=== PATIENT | male | born 1960 | race African-American/Black ===

== ENCOUNTER 2016-09-21 08:10 | Inpatient (IN) | payer MEDICARE, OTHER ==
[~2016-09-21] VITALS: Ht 185.4 cm; Wt 100.3 kg
[2016-09-21] MEDS ORDERED: LORazepam 2 MG/ML, 1ML ONE ×2 (08:19→10:09)
[2016-09-21] MEDS ORDERED: SODIUM CHLORIDE FLUSH 10ML SYR IVF ONE (08:30)
[2016-09-21] MEDS ORDERED: LORazepam 2 MG/ML, 1ML IVPush ONE ×2 (08:30→10:30)
[2016-09-21] MEDS ORDERED: SODIUM CHLORIDE 0.9% 1,000ML IVBOLUS ONE (08:30)
[2016-09-21 08:48] LABS: ASPARTATE AMINO TRANSFERASE 15 U/L (15-37); BLOOD UREA NITROGEN 9 mg/dL (7-18)
[2016-09-21 08:49] LABS: ACETAMINOPHEN < 2 mcg/mL (10-30)
[2016-09-21] MEDS ORDERED: AMLO10TA2 PO (09:07)
[2016-09-21] MEDS ORDERED: OXCA150T PO (09:07)
[2016-09-21] MEDS ORDERED: LISI-170 PO (09:07)
[2016-09-21] MEDS ORDERED: HYDR-3341 PO (09:07)
[2016-09-21 10:36] LABS: DAU SCREEN DISCLAIMER
[2016-09-21] MEDS ORDERED: LISI40TA PO (10:44)
[2016-09-21] MEDS ORDERED: LEVE100020 PO (10:44)
[2016-09-21] MEDS ORDERED: HYDR-3241 PO (10:44)
[2016-09-21] MEDS ORDERED: OXYC5CAP4 PO (10:44)
[2016-09-21] MEDS ORDERED: OXCA600T PO (10:44)
[2016-09-21] MEDS ORDERED: CLON0.3T47 PO (10:44)
[2016-09-21] MEDS ORDERED: MYCO500T3 PO (10:44)
[2016-09-21] MEDS ORDERED: LEVETIRACETAM 1,500 MG in SODIUM CHLORIDE 0.9% 100 ML IV ONE (11:00)
[2016-09-21] MEDS ORDERED: VALPROATE SODIUM 500 MG in DEXTROSE 5% 100 ML IV ONE (11:30)
[2016-09-21] MEDS: SODIUM CHLORIDE 0.9% 1,000 ML IV SCH ×2 (12:16→20:16)
[2016-09-21] MEDS ORDERED: POTASSIUM CHLORIDE 20 MEQ, MAGNESIUM SULFATE 2 GM, THIAMINE 100 MG, MVI ADULT 10 ML, FO... IV SCH (12:16)
[2016-09-21] MEDS ORDERED: BISACODYL 10 MG SUPP PR PRN (12:30)
[2016-09-21] MEDS ORDERED: POLYETHYLENE GLYCOL 17 GM PACKET PO PRN (12:30)
[2016-09-21] MEDS ORDERED: DOCUSATE 100 MG CAPSULE PO PRN (12:30)
[2016-09-21 12:53] VITALS: BP 175/97
[2016-09-21] MEDS ORDERED: LABETALOL 5MG/ML, 20ML IV PRN (13:00)
[2016-09-21] MEDS: LISINOPRIL 20 MG TABLET PO SCH (15:04)
[2016-09-21] MEDS: AMLODIPINE 5 MG TABLET PO SCH (17:12)
[2016-09-21] MEDS: FAMOTIDINE 20 MG/2 ML IV SCH (21:31)
[2016-09-21] MEDS: OXCARBAZEPINE 150 MG TABLET PO SCH (22:31)
[2016-09-21] MEDS: LEVETIRACETAM 500 MG TABLET PO SCH (22:31)
[2016-09-22 04:00] VITALS: BP 140/87
[2016-09-22 04:42] LABS: ASPARTATE AMINO TRANSFERASE 11 U/L (15-37); BLOOD UREA NITROGEN 9 mg/dL (7-18)
[2016-09-22] MEDS: FAMOTIDINE 20 MG/2 ML IV SCH (08:59)
[2016-09-22] MEDS: LEVETIRACETAM 500 MG TABLET PO SCH ×2 (08:59→23:01)
[2016-09-22] MEDS: AMLODIPINE 5 MG TABLET PO SCH (08:59)
[2016-09-22] MEDS: OXCARBAZEPINE 150 MG TABLET PO SCH ×2 (09:00→23:01)
[2016-09-22] MEDS: LISINOPRIL 20 MG TABLET PO SCH (09:01)
[2016-09-22] MEDS ORDERED: POTASSIUM CHLORIDE 20 MEQ TAB.ER.PRT PO ONE (09:30)
[2016-09-22 12:32] VITALS: BP_SYST 141; BP_SYST 97; BP_DIAS 64; BP_DIAS 81
[2016-09-22 19:36] VITALS: BP 145/90
[2016-09-23 01:54] VITALS: BP 157/95
[2016-09-23 06:53] VITALS: BP 169/101
[2016-09-23] MEDS: OXCARBAZEPINE 150 MG TABLET PO SCH (08:36)
[2016-09-23] MEDS: AMLODIPINE 5 MG TABLET PO SCH (08:36)
[2016-09-23] MEDS: LISINOPRIL 20 MG TABLET PO SCH (08:36)
[2016-09-23] MEDS: LEVETIRACETAM 500 MG TABLET PO SCH (08:36)
== END 2016-09-23 15:10 | disposition home or self-care (01) | DRG 101 ==
LOC: ED 11:39 → EDIP 12:17 → CCU 12:22 → 4EST 09-22 12:28 → DCLOUNGE 09-23 14:46
PROVIDERS: ADMIT Hospitalist; ATTEND Hospitalist
DX: G40.901 Epilepsy, unspecified, not intractable, with status epilepticus (principal); I10 Essential (primary) hypertension; M32.9 Systemic lupus erythematosus, unspecified; E87.6 Hypokalemia; M32.19 Other organ or system involvement in systemic lupus erythematosus; Z79.899 Other long term (current) drug therapy; Z91.19 Patient's noncompliance with other medical treatment and regimen; Z88.8 Allergy status to other drugs, medicaments and biological substances
CPT/HCPCS: 36415; 70450; 71010; 80053; 80307; 80329; 81003; 82542; 83735; 85025; 87081; 93005; 96361; 96365; 96367; 96375; 96376; J1953; J3411; J3475; J3480; J7042; G0480; J2060; J7030; S0028

== ENCOUNTER 2018-02-15 02:35 | Inpatient (IN) | payer MEDICARE ==
[~2018-02-15] VITALS: Ht 180.3 cm; Wt 92.4 kg
[~2018-02-15 02:35] MED LIST: AMLO10TA6 PO; CLON0.3T47 PO; HYDR-3241 PO; HYDR-3341 PO; LEVE100020 PO; LISI-170 PO; LISI40TA PO; MYCO500T3 PO; OXCA150T18 PO; OXCA600T10 PO; OXYC5CAP2 PO
[2018-02-15] MEDS ORDERED: SODIUM CHLORIDE 0.9% 1,000 ML IV ONE ×2 (02:48→04:02)
[2018-02-15] MEDS ORDERED: SODIUM CHLORIDE FLUSH 10ML SYR IVF ONE (03:00)
[2018-02-15] MEDS ORDERED: SODIUM CHLORIDE 0.9% 1,000ML IVBOLUS ONE ×2 (03:00→04:00)
[2018-02-15] MEDS ORDERED: LORazepam 2 MG/ML, 1ML ONE (03:27)
[2018-02-15] MEDS ORDERED: LEVETIRACETAM 1,000 MG in SODIUM CHLORIDE 0.9% 100 ML IV ONE (03:30)
[2018-02-15] MEDS ORDERED: LORazepam 2 MG/ML, 1ML IVPush ONE ×2 (03:30→07:00)
[2018-02-15 03:34] LABS: BASOPHILS # (AUTO) 0.01 x10^3/uL (0-0.1); BASOPHILS % (AUTO) 0 % (0-1); EOSINOPHILS # (AUTO) 0.04 x10^3/uL (0-0.4); EOSINOPHILS % (AUTO) 1 % (1-7); LYMPHOCYTES # (AUTO) 1.34 x10^3/uL (1-3.4); LYMPHOCYTES % (AUTO) 21 % (22-44); MD NO; MEAN CORPUSCULAR HEMOGLOBIN 27.5 pg (27.5-34.5); MEAN CORPUSCULAR VOLUME 85.9 fL (81-97); MEAN PLATELET VOLUME 10.9 fL (7.4-10.4); MONOCYTES # (AUTO) 0.35 x10^3/uL (0.2-0.8); MONOCYTES % (AUTO) 5 % (2-9); NEUTROPHILS # (AUTO) 4.71 x10^3/uL (1.8-6.8); NEUTROPHILS % (AUTO) 73 % (42-75); PLATELET COUNT 155 x10^3/uL (130-400); RED BLOOD COUNT 5.23 x10^6/uL (4.38-5.82); RED CELL DISTRIBUTION WIDTH 14.5 % (9.4-14.8)
[2018-02-15 03:47] LABS: ALANINE AMINOTRANSFERASE 22 U/L (12-78); ALBUMIN 3.4 g/dL (3.4-5.0); ANION GAP 19 mmol/L (5-15); CALCIUM 8.4 mg/dL (8.5-10.1); CHLORIDE 106 mmol/L (98-107); CREATININE 1.31 mg/dL (0.7-1.3); SALICYLATE LEVEL 2.9 mg/dL (2.8-20.0)
[2018-02-15 03:49] LABS: ALKALINE PHOSPHATASE 104 U/L (45-117); BILIRUBIN,TOTAL 0.2 mg/dL (0.2-1.0)
[2018-02-15 03:53] LABS: ACETAMINOPHEN < 2 mcg/mL (10-30)
[2018-02-15] MEDS ORDERED: AMPICILLIN/SULBACTAM 3 GM in SODIUM CHLORIDE 0.9% 100 ML IVPB ONE (04:00)
[2018-02-15] MEDS ORDERED: HYDR-3240 PO (04:20)
[2018-02-15] MEDS ORDERED: SODIUM CHLORIDE FLUSH 10ML SYR IVF PRN (04:30)
[2018-02-15] MEDS ORDERED: hydrALAzine 20 MG/ML, 1ML ONE (04:47)
[2018-02-15] MEDS ORDERED: OXYcodone IR 5MG TABLET PO PRN (05:00)
[2018-02-15] MEDS ORDERED: BISACODYL 10 MG SUPP PR PRN ×2 (05:00→07:00)
[2018-02-15] MEDS ORDERED: hydrALAzine 20 MG/ML, 1ML IVPush PRN (05:00)
[2018-02-15] MEDS ORDERED: D5%-0.9% NACL 1,000 ML IV SCH (05:00)
[2018-02-15] MEDS ORDERED: ACETAMINOPHEN 325 MG TABLET PO PRN (05:00)
[2018-02-15] MEDS ORDERED: POLYETHYLENE GLYCOL 17 GM PACKET PO PRN (05:00)
[2018-02-15] MEDS ORDERED: morphine SULFATE 10 MG/ML, 1ML IVPush PRN (05:00)
[2018-02-15] MEDS ORDERED: DOCUSATE 100 MG CAPSULE PO PRN (05:00)
[2018-02-15] MEDS ORDERED: PROMETHAZINE 25 MG/ML, 1ML IM PRN (05:00)
[2018-02-15] MEDS ORDERED: ONDANSETRON 2MG/ML, 2ML IVPush PRN (05:00)
[2018-02-15] MEDS ORDERED: ONDANSETRON ODT 4 MG PO PRN (05:00)
[2018-02-15 05:27] LABS: HEMOGLOBIN A1C 5.3 % (4.2-6.3)
[2018-02-15 05:30] LABS: FREE T4 (FREE THYROXINE) 0.85 ng/dL (0.76-1.46); THYROID STIMULATING HORMONE 2.83 mIU/L (0.358-3.740)
[2018-02-15] MEDS ORDERED: LORazepam 2 MG/ML, 1ML IVPush PRN (05:30)
[2018-02-15] MEDS ORDERED: VECURONIUM 10 MG ONE (06:03)
[2018-02-15] MEDS ORDERED: VECURONIUM 10 MG IVPush ONE (06:30)
[2018-02-15] MEDS ORDERED: FENTANYL PF 100 MCG/2ML ONE (06:33)
[2018-02-15] MEDS: D5%-0.9% NACL+KCL 20MEQ 1,000 ML IV SCH ×2 (06:43→16:07)
[2018-02-15] MEDS ORDERED: FENTANYL PF 100 MCG/2ML IVPush PRN (07:00)
[2018-02-15] MEDS ORDERED: LORazepam 2 MG/ML, 1ML IV ONE (07:00)
[2018-02-15] MEDS ORDERED: LIDOCAINE-MPF 1%, 2ML ENDO PRN (07:00)
[2018-02-15] MEDS: ALBUTEROL/IPRATROPIUM 2.5MG/0.5MG, 3 ML INLINE SCH ×5 (07:00→22:14)
[2018-02-15] MEDS ORDERED: SENNOSIDES 8.8 MG/5 ML ORAL SOL NG PRN (07:00)
[2018-02-15] MEDS ORDERED: FENTANYL PF 100 MCG/2ML IVPush ONE (07:00)
[2018-02-15] MEDS ORDERED: LACTULOSE 20 GM/30 ML UDC NG PRN (07:00)
[2018-02-15] MEDS ORDERED: PHARMACY MAY ADJ FOR RENAL FX MC SCH (07:00)
[2018-02-15] MEDS ORDERED: SENNA/DOCUSATE TABLET NG PRN (07:00)
[2018-02-15] MEDS: HEPARIN 5,000 UNITS/ML, 1ML SQ SCH ×3 (07:58→23:06)
[2018-02-15] MEDS: PANTOPRAZOLE 40 MG IV IV SCH (07:58)
[2018-02-15] MEDS: LISINOPRIL 20 MG TABLET PO SCH (07:59)
[2018-02-15] MEDS: AMLODIPINE 10 MG TAB PO SCH (07:59)
[2018-02-15] MEDS: PROPOFOL 100 ML IV PRN ×5 (07:59→20:49)
[2018-02-15] MEDS ORDERED: PROPOFOL 100 ML IV ONE (08:00)
[2018-02-15] MEDS ORDERED: SUCCINYLCHOLINE 20 MG/ML, 10ML ONE (08:00)
[2018-02-15] MEDS ORDERED: PROPOFOL 10 MG/ML, 20ML ONE (08:00)
[2018-02-15 08:29] LABS: AMPHETAMINE SCREEN, URINE Negative (Negative); BARBITURATE SCREEN, URINE Negative (Negative); BENZODIAZEPINE SCREEN, URINE Positive (Negative); CANNABINOID SCREEN, URINE Positive (Negative); COCAINE SCREEN, URINE Negative (Negative); METHADONE SCREEN, URINE Negative (Negative); OPIATE SCREEN, URINE Negative (Negative)
[2018-02-15] MEDS ORDERED: AMPICILLIN/SULBACTAM 3 GM in SODIUM CHLORIDE 0.9% 100 ML IV SCH (10:00)
[2018-02-15] MEDS: PIPERACILLIN/TAZO/PMX 3.375GM 50 ML IV SCH ×3 (11:31→23:07)
[2018-02-15] MEDS: LEVETIRACETAM 1,000 MG in SODIUM CHLORIDE 0.9% 100 ML IV SCH (16:38)
[2018-02-16] MEDS: ALBUTEROL/IPRATROPIUM 2.5MG/0.5MG, 3 ML INLINE SCH ×2 (03:39→06:33)
[2018-02-16 04:08] VITALS: BP 130/84
[2018-02-16] MEDS: LEVETIRACETAM 1,000 MG in SODIUM CHLORIDE 0.9% 100 ML IV SCH ×2 (04:44→16:29)
[2018-02-16] MEDS: PIPERACILLIN/TAZO/PMX 3.375GM 50 ML IV SCH ×4 (04:45→23:54)
[2018-02-16] MEDS: PROPOFOL 100 ML IV PRN (04:45)
[2018-02-16 04:49] LABS: BASOPHILS # (AUTO) 0.02 x10^3/uL (0-0.1); BASOPHILS % (AUTO) 0 % (0-1); EOSINOPHILS % (AUTO) 0 % (1-7); LYMPHOCYTES # (AUTO) 0.99 x10^3/uL (1-3.4); LYMPHOCYTES % (AUTO) 19 % (22-44); MD NO; MEAN CORPUSCULAR HEMOGLOBIN 27.9 pg (27.5-34.5); MEAN CORPUSCULAR HGB CONC 32.7 g/dL (33.2-36.2); MEAN CORPUSCULAR VOLUME 85.2 fL (81-97); MEAN PLATELET VOLUME 10.9 fL (7.4-10.4); MONOCYTES % (AUTO) 8 % (2-9); NEUTROPHILS # (AUTO) 3.72 x10^3/uL (1.8-6.8); NEUTROPHILS % (AUTO) 73 % (42-75); PLATELET COUNT 143 x10^3/uL (130-400); RED BLOOD COUNT 4.66 x10^6/uL (4.38-5.82); RED CELL DISTRIBUTION WIDTH 14.9 % (9.4-14.8)
[2018-02-16 04:50] LABS: ALANINE AMINOTRANSFERASE 18 U/L (12-78); ALBUMIN 2.7 g/dL (3.4-5.0); ANION GAP 9 mmol/L (5-15); CALCIUM 7.8 mg/dL (8.5-10.1); CHLORIDE 118 mmol/L (98-107)
[2018-02-16 04:56] LABS: ALKALINE PHOSPHATASE 76 U/L (45-117); BILIRUBIN,TOTAL 0.4 mg/dL (0.2-1.0); CHOL/HDL RATIO 2.7; CHOLESTEROL, TOTAL 114 mg/dL (140-239); HDL CHOL % 37 % (26-37); HDL CHOLESTEROL (DIRECT) 42 mg/dL (40-60); LDL CHOLESTEROL,CALCULATED 49 mg/dL (54-169); LDL/HDL RATIO 1.2 (0.5-3.0); TOTAL PROTEIN 6.5 g/dL (6.4-8.2); TRIGLYCERIDES 116 mg/dL (50-200); VLDL CHOLESTEROL 23 mg/dL (0-25)
[2018-02-16] MEDS: HEPARIN 5,000 UNITS/ML, 1ML SQ SCH ×3 (06:43→16:30)
[2018-02-16] MEDS: AMLODIPINE 10 MG TAB PO SCH (08:10)
[2018-02-16] MEDS: PANTOPRAZOLE 40 MG IV IV SCH (08:10)
[2018-02-16] MEDS: LISINOPRIL 20 MG TABLET PO SCH (08:11)
[2018-02-16] MEDS ORDERED: ALBUTEROL SULFATE 2.5 MG/3 ML NPPB PRN (09:30)
[2018-02-16] MEDS ORDERED: ALBUTEROL SULFATE 2.5 MG/3 ML ONE (09:53)
[2018-02-16] MEDS: ALBUTEROL SULFATE 2.5 MG/3 ML NPPB SCH ×3 (10:09→20:00)
[2018-02-16] MEDS ORDERED: ALBUTEROL/IPRATROPIUM 2.5MG/0.5MG, 3 ML ONE (19:43)
[2018-02-16 20:14] VITALS: BP 145/95
[2018-02-16 21:34] VITALS: BP 147/70
[2018-02-17 01:54] VITALS: BP 150/93
[2018-02-17] MEDS: LEVETIRACETAM 1,000 MG in SODIUM CHLORIDE 0.9% 100 ML IV SCH (04:29)
[2018-02-17 05:06] LABS: MEAN CORPUSCULAR HEMOGLOBIN 27.6 pg (27.5-34.5); MEAN CORPUSCULAR HGB CONC 32.1 g/dL (33.2-36.2); MEAN CORPUSCULAR VOLUME 86.1 fL (81-97); MEAN PLATELET VOLUME 10.9 fL (7.4-10.4); PLATELET COUNT 117 x10^3/uL (130-400); RED BLOOD COUNT 4.41 x10^6/uL (4.38-5.82); RED CELL DISTRIBUTION WIDTH 15.1 % (9.4-14.8)
[2018-02-17 05:08] LABS: ANION GAP 7 mmol/L (5-15); CALCIUM 8.2 mg/dL (8.5-10.1); CHLORIDE 114 mmol/L (98-107); CREATININE 0.87 mg/dL (0.7-1.3)
[2018-02-17] MEDS: PIPERACILLIN/TAZO/PMX 3.375GM 50 ML IV SCH ×2 (05:50→11:44)
[2018-02-17 05:59] LABS: BASOPHILS # (AUTO) 0.01 x10^3/uL (0-0.1); BASOPHILS % (AUTO) 0 % (0-1); EOSINOPHILS # (AUTO) 0.01 x10^3/uL (0-0.4); EOSINOPHILS % (AUTO) 0 % (1-7); LYMPHOCYTES # (AUTO) 1.05 x10^3/uL (1-3.4); LYMPHOCYTES % (AUTO) 20 % (22-44); MD SCAN; MONOCYTES # (AUTO) 0.62 x10^3/uL (0.2-0.8); MONOCYTES % (AUTO) 12 % (2-9); NEUTROPHILS # (AUTO) 3.55 x10^3/uL (1.8-6.8); NEUTROPHILS % (AUTO) 68 % (42-75)
[2018-02-17 06:29] VITALS: BP 143/91
[2018-02-17] MEDS: HEPARIN 5,000 UNITS/ML, 1ML SQ SCH ×2 (07:00→08:21)
[2018-02-17 07:01] VITALS: BP 157/92
[2018-02-17] MEDS: ALBUTEROL SULFATE 2.5 MG/3 ML NPPB SCH (07:14)
[2018-02-17] MEDS: PANTOPRAZOLE 40 MG IV IV SCH (08:19)
[2018-02-17] MEDS: AMLODIPINE 10 MG TAB PO SCH (08:19)
[2018-02-17] MEDS: LISINOPRIL 20 MG TABLET PO SCH (08:19)
[2018-02-17] MEDS ORDERED: ALBUTEROL SULFATE 2.5 MG/3 ML NPPB SCH (09:00)
[2018-02-17 12:51] VITALS: BP 151/89
[2018-02-17] MEDS ORDERED: CLON0.3T47 PO (13:45)
== END 2018-02-17 15:51 | disposition home or self-care (01) | DRG 208 ==
LOC: ED 03:15 → EDIP 04:02 → CCU 05:08 → 4WST 02-16 19:43 → DCLOUNGE 02-17 15:37
PROVIDERS: ADMIT Internal Medicine; ATTEND Internal Medicine
PROC: 5A1935Z Respiratory Ventilation, Less than 24 Consecutive Hours (ICD-10-PCS; principal; 2018-02-16)
PROC: 0BH17EZ Insertion of Endotracheal Airway into Trachea, Via Natural or Artificial Opening (ICD-10-PCS; 2018-02-16)
DX: J96.01 Acute respiratory failure with hypoxia (principal); J69.0 Pneumonitis due to inhalation of food and vomit; N17.0 Acute kidney failure with tubular necrosis; G04.81 Other encephalitis and encephalomyelitis; E87.2 Acidosis; G40.901 Epilepsy, unspecified, not intractable, with status epilepticus; M32.19 Other organ or system involvement in systemic lupus erythematosus; E87.6 Hypokalemia; H54.7 Unspecified visual loss; I10 Essential (primary) hypertension; I16.0 Hypertensive urgency; R32 Unspecified urinary incontinence; W06.XXXA Fall from bed, initial encounter; Y93.89 Activity, other specified; Z88.8 Allergy status to other drugs, medicaments and biological substances; Z91.14 Patient's other noncompliance with medication regimen; Y92.89 Other specified places as the place of occurrence of the external cause; Y99.8 Other external cause status; Z91.19 Patient's noncompliance with other medical treatment and regimen
CPT/HCPCS: 31500; 36415; 36600; 70450; 71045; 80048; 80053; 80061; 80177; 80307; 80329; 82550; 82803; 83036; 83605; 83735; 84100; 84439; 84443; 84478; 85025; 87040; 87070; 87081; 87176; 87205; 93005; 94002; 94003; 94150; 94640; 95819; 96365; 96375; 96376; 99291; G0378; J0295; J1644; J1953; J2543; J2704; J7613; J7620; C9113; G0480; J0330; J0360; J2060; J3480; J7030; J7050; J7517

== ENCOUNTER 2018-05-28 05:05 | Inpatient (IN) | payer MEDICARE ==
[~2018-05-28] VITALS: Ht 185.4 cm; Wt 100.1 kg
[~2018-05-28 05:05] MED LIST changes: +ERGO500017 PO; +HYDR-3240 PO; +PHEN100C PO
[2018-05-28] MEDS ORDERED: LORazepam 2 MG/ML, 1ML ONE (05:07)
[2018-05-28] MEDS ORDERED: LORazepam 2 MG/ML, 1ML IVPush ONE ×2 (05:30→06:00)
[2018-05-28] MEDS ORDERED: SODIUM CHLORIDE FLUSH 10ML SYR IVF ONE (05:30)
--- NOTE | 2018-05-28 05:44 | NUR ---
PT HR UP TO 158, O2 SAT 89% ON 15L PER NON-REBREATHER, PT STARING OFF IN DISTANCE, PT NON RESPONSIVE, RIGHT HAND TREMORING. PT GIVEN 2ND DOSE OF ATIVAN PER ERP OK. PT MOUTH SUCTIONED, PT HR IMPROVING. PT MOVED TO TRAUMA 3 FOR CLOSER OBS
[2018-05-28 05:46] LABS: BASOPHILS # (AUTO) 0.02 x10^3/uL (0-0.1); BASOPHILS % (AUTO) 0 % (0-1); EOSINOPHILS % (AUTO) 2 % (1-7); LYMPHOCYTES # (AUTO) 0.35 x10^3/uL (1-3.4); LYMPHOCYTES % (AUTO) 4 % (22-44); MD NO; MEAN CORPUSCULAR HEMOGLOBIN 27.8 pg (27.5-34.5); MEAN CORPUSCULAR HGB CONC 32.5 g/dL (33.2-36.2); MEAN CORPUSCULAR VOLUME 85.6 fL (81-97); MEAN PLATELET VOLUME 11.4 fL (7.4-10.4); MONOCYTES # (AUTO) 0.32 x10^3/uL (0.2-0.8); MONOCYTES % (AUTO) 4 % (2-9); NEUTROPHILS # (AUTO) 7.69 x10^3/uL (1.8-6.8); NEUTROPHILS % (AUTO) 90 % (42-75); PLATELET COUNT 127 x10^3/uL (130-400); RED BLOOD COUNT 5.19 x10^6/uL (4.38-5.82); RED CELL DISTRIBUTION WIDTH 14.8 % (9.4-14.8)
--- NOTE | 2018-05-28 05:50 | NUR ---
SEIZURE PADS PLACE DON PT BED. LABS DRAWN. EKG DONE. PT IN HOSPITAL GOWN. CLOTHING REMOVED. PT ON ALL MONITORS.
[2018-05-28 06:00] LABS: CHLORIDE 110 mmol/L (98-107)
[2018-05-28] MEDS ORDERED: FILTER 0.22 MICRON IV ONE (06:00)
[2018-05-28] MEDS ORDERED: LORazepam 1MG TABLET PO ONE (06:00)
[2018-05-28] MEDS ORDERED: PHENYTOIN SODIUM 1,000 MG in SODIUM CHLORIDE 0.9% 100 ML IVPB ONE (06:00)
--- NOTE | 2018-05-28 06:05 | NUR ---
ORDERED ANTI-SEIZURE MEDS STARTED PER PUMP. PT REMAINS NON VERBAL BUT IS MOVING AROUND, GRUNTING AT TIMES.
--- NOTE | 2018-05-28 06:32 | NUR ---
PT TO CT
[2018-05-28 06:52] LABS: ALANINE AMINOTRANSFERASE 19 U/L (12-78); ALBUMIN 3.1 g/dL (3.4-5.0); ALKALINE PHOSPHATASE 91 U/L (45-117); ANION GAP 10 mmol/L (5-15); BILIRUBIN,TOTAL 0.3 mg/dL (0.2-1.0); CALCIUM 8.2 mg/dL (8.5-10.1); CREATININE 0.96 mg/dL (0.7-1.3); SALICYLATE LEVEL 2.9 mg/dL (2.8-20.0); TOTAL PROTEIN 7.1 g/dL (6.4-8.2)
[2018-05-28 06:53] LABS: ACETAMINOPHEN < 2 mcg/mL (10-30)
--- NOTE | 2018-05-28 06:53 | NUR ---
BEDSIDE REPORT GIVEN TO KARIN FERRARO IN CONJUNTION WITH BARRON FERRARO. PT BACK FROM CT. PT STRAIGHT CATHED FOR URINE SAMPLE, WALKED URINE TO LAB. PT RESTING IN BED CALMLY, TOLERATED CATH WELL
--- NOTE | 2018-05-28 06:56 | NUR ---
REPORT RECEIVED, CARE ASSUMED. PT CONT POSTICTAL, PT WITHDRAWLS TO PAINFUL STIMULI. SR PER MONITOR. DILANTIN CONT TO INFUSE WITHOUT REDNESS/SWELLING. SEIZURE PADS IN PLACE. WAITING FOR FURTHER DISPOSITION.
[2018-05-28 07:22] LABS: AMPHETAMINE SCREEN, URINE Negative (Negative); BARBITURATE SCREEN, URINE Negative (Negative); BENZODIAZEPINE SCREEN, URINE Positive (Negative); CANNABINOID SCREEN, URINE Positive (Negative); COCAINE SCREEN, URINE Negative (Negative); METHADONE SCREEN, URINE Negative (Negative); OPIATE SCREEN, URINE Positive (Negative)
[2018-05-28] MEDS ORDERED: AZITHROMYCIN 500 MG in SODIUM CHLORIDE 0.9% 250 ML IVPB ONE (07:30)
[2018-05-28] MEDS ORDERED: CEFTRIAXONE 1,000 MG in SODIUM CHLORIDE 0.9% 50 ML IVPB ONE (07:30)
[2018-05-28] MEDS ORDERED: SODIUM CHLORIDE FLUSH 10ML SYR IVF PRN (07:30)
--- NOTE | 2018-05-28 07:31 | NUR ---
BLOOD CULTURES, LACTIC ACID AND IV ABX ORDERED. WAITING FOR LAB DRAW TO BEGIN ABX. NO CHANGE IN PT CONDITION NOTED. CONT TO MONITOR.
--- NOTE | 2018-05-28 08:03 | NUR ---
BLOOD CULTURES DRAWN, PINK ARM BAND IN PLACE. REPORT CALLED TO ABNER FERRARO. POC DISCUSSED. IV ABX TO BE STARTED. RECEIVED CALL FROM PT REA AMOR [phone], AWARE PT TO BE ADMITTED.
--- NOTE | 2018-05-28 08:18 | NUR ---
DR SELF AT BEDSIDE TO EVAL PT. PT TO THEN BE TRANSPORTED TO ICU.
[2018-05-28] MEDS ORDERED: ACETAMINOPHEN 325 MG TABLET PO PRN (09:30)
[2018-05-28] MEDS ORDERED: LABETALOL 5MG/ML, 20ML IVPush PRN (09:30)
[2018-05-28] MEDS ORDERED: POLYETHYLENE GLYCOL 17 GM PACKET PO PRN (09:30)
[2018-05-28] MEDS ORDERED: ONDANSETRON 2MG/ML, 2ML IVPush PRN (09:30)
[2018-05-28] MEDS ORDERED: ERGOCALCIFEROL 50,000 UNIT CAPSULE PO SCH (09:30)
[2018-05-28] MEDS ORDERED: ONDANSETRON ODT 4 MG PO PRN (09:30)
[2018-05-28] MEDS ORDERED: BISACODYL 10 MG SUPP PR PRN (09:30)
[2018-05-28] MEDS ORDERED: LORazepam 2 MG/ML, 1ML IVPush PRN (09:30)
[2018-05-28] MEDS: PIPERACILLIN/TAZO/PMX 3.375GM 50 ML IV SCH ×3 (09:32→22:56)
[2018-05-28] MEDS: SODIUM CHLORIDE 0.9% 1,000 ML IV SCH ×2 (09:32→23:47)
[2018-05-28] MEDS: LINEZOLID PMX 600MG/300ML 300 ML IV SCH ×2 (09:32→23:47)
[2018-05-28] MEDS: ENOXAPARIN 40 MG/0.4 ML SQ SCH (09:49)
[2018-05-28] MEDS: LEVETIRACETAM 500 MG TABLET PO SCH ×2 (09:50→20:44)
[2018-05-28] MEDS ORDERED: OXYcodone 5 MG/5 ML ORAL.SOL UDC PO PRN (10:00)
[2018-05-28 10:36] VITALS: BP 129/79
[2018-05-29 04:38] VITALS: BP 151/87
[2018-05-29] MEDS: PIPERACILLIN/TAZO/PMX 3.375GM 50 ML IV SCH ×2 (05:59→11:41)
[2018-05-29] MEDS: SENNA/DOCUSATE TABLET PO SCH (07:09)
[2018-05-29] MEDS: LEVETIRACETAM 500 MG TABLET PO SCH ×2 (07:53→20:05)
[2018-05-29] MEDS: ENOXAPARIN 40 MG/0.4 ML SQ SCH ×2 (07:54→09:30)
[2018-05-29] MEDS: LINEZOLID PMX 600MG/300ML 300 ML IV SCH (09:33)
[2018-05-29 14:22] VITALS: BP 160/94
[2018-05-29] MEDS: CEFTRIAXONE PMX 1GM/50ML 50 ML IV SCH (14:57)
[2018-05-29] MEDS: SODIUM CHLORIDE 0.9% 1,000 ML IV SCH (17:22)
[2018-05-29] MEDS: DOXYCYCLINE 100 MG in DEXTROSE 5% 250 ML IV SCH (17:23)
[2018-05-29] MEDS: DIVALPROEX 250 MG TABLET.DR PO SCH (20:05)
[2018-05-29 20:30] VITALS: BP 168/118
[2018-05-29 22:24] VITALS: BP 154/94
[2018-05-30 00:13] VITALS: BP 154/92
[2018-05-30 01:34] LABS: CLOSTRIDIUM DIFFICILE ANTIGEN NEGATIVE; CLOSTRIDIUM DIFFICILE TOXIN NEGATIVE (Negative)
[2018-05-30] MEDS: DOXYCYCLINE 100 MG in DEXTROSE 5% 250 ML IV SCH (04:40)
[2018-05-30] MEDS: SODIUM CHLORIDE 0.9% 1,000 ML IV SCH (04:40)
[2018-05-30 06:47] VITALS: BP 184/97
[2018-05-30] MEDS: LEVETIRACETAM 500 MG TABLET PO SCH (09:30)
[2018-05-30] MEDS: DIVALPROEX 250 MG TABLET.DR PO SCH (09:30)
[2018-05-30] MEDS: ENOXAPARIN 40 MG/0.4 ML SQ SCH (09:30)
[2018-05-30] MEDS: SENNA/DOCUSATE TABLET PO SCH (09:31)
[2018-05-30] MEDS ORDERED: AMOX1TAB61 PO (12:46)
[2018-05-30] MEDS ORDERED: DIVA-59 PO (12:46)
[2018-05-30 12:48] VITALS: BP 153/96
[2018-05-30] MEDS: CEFTRIAXONE PMX 1GM/50ML 50 ML IV SCH (12:53)
== END 2018-05-30 15:21 | disposition home or self-care (01) | DRG 100 ==
LOC: ED 05:19 → EDIP 07:10 → ICU 08:26 → 5SO 05-29 14:03 → DCLOUNGE 05-30 15:08
PROVIDERS: ADMIT Internal Medicine; ATTEND Internal Medicine
DX: G40.901 Epilepsy, unspecified, not intractable, with status epilepticus (principal); J15.9 Unspecified bacterial pneumonia; D69.6 Thrombocytopenia, unspecified; F12.90 Cannabis use, unspecified, uncomplicated; I10 Essential (primary) hypertension; Z79.899 Other long term (current) drug therapy; Z91.14 Patient's other noncompliance with medication regimen; M32.19 Other organ or system involvement in systemic lupus erythematosus
CPT/HCPCS: 36415; 70450; 70551; 71045; 80053; 80185; 80307; 80329; 82140; 82962; 83605; 85025; 87040; 87081; 87324; 90656; 93005; 96365; 96375; 96376; 99291; G0378; J0696; J1165; J1650; J2020; J2543; J7060; G0480; J2060; J7030; J7517

== ENCOUNTER 2020-02-05 15:07 | Inpatient (IN) | payer MEDICARE ==
[~2020-02-05] VITALS: Ht 182.9 cm; Wt 89.9 kg
[~2020-02-05 15:07] MED LIST changes: -AMLO10TA6 PO; +AMLO10TA8 PO; +AMOX1TAB61 PO; +CLON0.3T PO; -CLON0.3T47 PO; +DIVA-59 PO
[2020-02-05] MEDS ORDERED: SODIUM CHLORIDE 0.9% 1,000 ML IV ONE (15:09)
[2020-02-05] MEDS ORDERED: LORazepam 2 MG/ML, 1ML ONE (15:11)
--- NOTE | 2020-02-05 15:12 | NUR ---
THIS IS 59 YEAR OLD MALE WHO WAS BIB BY AMBULANCE DUE TO SEIZURE ACTIVITY, PT RECEIVED 2 VERSED VIA EMS. PT CAME IN WITH SEIZURE, MEDICATED WITH 1MG OF OF ATIVAN, STOPPED FOP A MIN THEN CONTINUE TO SEIZURE, MEDICATED WITH 2 OF ATIVAN ADDITIONAL PER MD. DECERABERATE POSTURING. P
[2020-02-05] MEDS ORDERED: LABETALOL 20 MG/4 ML ONE (15:14)
--- NOTE | 2020-02-05 15:20 | NUR ---
PT TO CT VIA [facility]
--- NOTE | 2020-02-05 15:28 | NUR ---
REPORT TO GT FERRARO, PLAN OF CARE DISCUSSED
[2020-02-05] MEDS ORDERED: SODIUM CHLORIDE FLUSH 10ML SYR IVF ONE (15:30)
[2020-02-05] MEDS ORDERED: LABETALOL 5MG/ML, 20ML IVPush ONE (15:30)
[2020-02-05] MEDS ORDERED: LORazepam 2 MG/ML, 1ML IVPush ONE ×2 (15:30)
--- NOTE | 2020-02-05 15:30 | NUR ---
PT RTD FROM CT. ALL MONITORS IN PLACE. RPT REC'D FROM VAMSHI AND ASSUMED PT CARE.
[2020-02-05 15:31] LABS: BASOPHILS % (AUTO) 0 % (0-1); EOSINOPHILS % (AUTO) 0 % (1-7); LYMPHOCYTES # (AUTO) 0.53 x10^3/uL (1-3.4); LYMPHOCYTES % (AUTO) 7 % (22-44); MD NO; MEAN CORPUSCULAR HEMOGLOBIN 27.2 pg (27.5-34.5); MEAN CORPUSCULAR HGB CONC 31.5 g/dL (33.2-36.2); MEAN PLATELET VOLUME 10.9 fL (7.4-10.4); MONOCYTES # (AUTO) 0.15 x10^3/uL (0.2-0.8); MONOCYTES % (AUTO) 2 % (2-9); NEUTROPHILS # (AUTO) 6.39 x10^3/uL (1.8-6.8); NEUTROPHILS % (AUTO) 90 % (42-75); PLATELET COUNT 144 x10^3/uL (130-400); RED BLOOD COUNT 5.28 x10^6/uL (4.38-5.82); RED CELL DISTRIBUTION WIDTH 14.8 % (9.4-14.8)
[2020-02-05 15:43] LABS: INTERNATIONAL NORMALIZED RATIO 0.99 (0.93-1.1); PROTHROMBIN TIME 10.2 Seconds (9.6-11.5)
[2020-02-05 15:44] LABS: ALBUMIN 3.6 g/dL (3.4-5.0); ANION GAP 14 mmol/L (5-15); CALCIUM 8.7 mg/dL (8.5-10.1); CHLORIDE 110 mmol/L (98-107)
[2020-02-05 15:47] LABS: ALANINE AMINOTRANSFERASE 18 U/L (12-78); ALKALINE PHOSPHATASE 96 U/L (45-117); BILIRUBIN,TOTAL 0.3 mg/dL (0.2-1.0); CREATININE 1.15 mg/dL (0.7-1.3); SALICYLATE LEVEL 2.2 mg/dL (2.8-20.0); TOTAL PROTEIN 8.1 g/dL (6.4-8.2)
[2020-02-05] MEDS ORDERED: ONDANSETRON 2MG/ML, 2ML IVPush PRN (16:00)
[2020-02-05] MEDS ORDERED: LORazepam 2 MG/ML, 1ML IVPush PRN (16:00)
[2020-02-05] MEDS ORDERED: BISACODYL 10 MG SUPP PR PRN (16:00)
[2020-02-05] MEDS ORDERED: PHENYTOIN SODIUM 1,000 MG in SODIUM CHLORIDE 0.9% 100 ML IV ONE (16:00)
[2020-02-05] MEDS ORDERED: ACETAMINOPHEN 325 MG TABLET PO PRN (16:00)
[2020-02-05] MEDS ORDERED: morphine SULFATE 10 MG/ML, 1ML IVPush PRN (16:00)
[2020-02-05] MEDS ORDERED: OXYcodone IR 5MG TABLET PO PRN (16:00)
[2020-02-05] MEDS ORDERED: POLYETHYLENE GLYCOL 17 GM PACKET PO PRN (16:00)
[2020-02-05] MEDS ORDERED: PHENYTOIN 100 MG CAPSULE PO SCH (16:00)
[2020-02-05 16:30] LABS: AMPHETAMINE SCREEN, URINE Negative (Negative); BARBITURATE SCREEN, URINE Negative (Negative); BENZODIAZEPINE SCREEN, URINE Positive (Negative); CANNABINOID SCREEN, URINE Positive (Negative); COCAINE SCREEN, URINE Negative (Negative); METHADONE SCREEN, URINE Negative (Negative); OPIATE SCREEN, URINE Negative (Negative)
--- NOTE | 2020-02-05 16:40 | NUR ---
PTS CATERINA ESCOBAR CALLED. PT ASSESSMENT AND POC RVIEWED AND QUESTIONS ANSWERED. REVIEWED CURRENT MEDICATIONS. DISCUSSED VISITING HOURS AND LIMITATIONS.
--- NOTE | 2020-02-05 16:41 | NUR ---
UPDATE DR BRUNSON RE: PTS MED LIST. PT NO LONGER TAKING DILANTIN OR VALROIC ACID. NEW ORDERS REC'D.
[2020-02-05] MEDS: LEVETIRACETAM 1,000 MG in SODIUM CHLORIDE 0.9% 100 ML IV SCH (16:50)
--- NOTE | 2020-02-05 16:58 | NUR ---
UNASYN ORDERED. NOT GIVEN IN ED, BC TO BE DRAWN. ORDER PLACED.
[2020-02-05] MEDS ORDERED: FILTER 0.22 MICRON IV PRN (17:00)
[2020-02-05] MEDS ORDERED: ENOXAPARIN 40 MG/0.4 ML ONE (17:05)
[2020-02-05] MEDS: ENOXAPARIN 40 MG/0.4 ML SQ SCH (17:06)
[2020-02-05] MEDS: SODIUM CHLORIDE 0.9% 1,000 ML IV SCH ×2 (17:25→17:37)
[2020-02-05 18:01] VITALS: BP 150/99
[2020-02-05] MEDS: AMPICILLIN/SULBACTAM 3 GM in SODIUM CHLORIDE 0.9% 100 ML IV SCH (19:58)
[2020-02-05] MEDS: LABETALOL 5MG/ML, 20ML IVPush PRN ×2 (19:58→23:18)
[2020-02-05] MEDS ORDERED: TEMPLATE NON-FORMULARY MED. (Levetiracetam** (Keppra**) 1,000 MG) PO SCH (21:00)
[2020-02-05] MEDS ORDERED: DIVALPROEX 250 MG TABLET.DR PO SCH (21:00)
[2020-02-05] MEDS: ENALAPRILAT 1.25 MG/ML, 2ML IVPush PRN (21:02)
[2020-02-06] MEDS: AMPICILLIN/SULBACTAM 3 GM in SODIUM CHLORIDE 0.9% 100 ML IV SCH ×2 (01:03→07:07)
[2020-02-06] MEDS: ENALAPRILAT 1.25 MG/ML, 2ML IVPush PRN ×4 (01:34→16:58)
[2020-02-06] MEDS ORDERED: LISINOPRIL 20 MG TABLET PO ONE (02:00)
[2020-02-06] MEDS ORDERED: AMLODIPINE 5 MG TABLET PO ONE (02:00)
[2020-02-06 03:59] VITALS: BP 158/93
[2020-02-06 04:48] LABS: ALANINE AMINOTRANSFERASE 16 U/L (12-78); ALBUMIN 3.5 g/dL (3.4-5.0); ANION GAP 9 mmol/L (5-15); CALCIUM 9.1 mg/dL (8.5-10.1); CHLORIDE 112 mmol/L (98-107); CREATININE 0.93 mg/dL (0.7-1.3)
[2020-02-06 04:50] LABS: ALKALINE PHOSPHATASE 85 U/L (45-117); BILIRUBIN,TOTAL 0.5 mg/dL (0.2-1.0)
[2020-02-06] MEDS: hydrALAzine 20 MG/ML, 1ML IV PRN ×2 (05:18→09:32)
[2020-02-06] MEDS: LEVETIRACETAM 1,000 MG in SODIUM CHLORIDE 0.9% 100 ML IV SCH ×2 (05:18→16:57)
[2020-02-06 05:53] LABS: MEAN CORPUSCULAR HEMOGLOBIN 27.5 pg (27.5-34.5); MEAN CORPUSCULAR HGB CONC 32.2 g/dL (33.2-36.2); PLATELET COUNT 145 x10^3/uL (130-400); RED CELL DISTRIBUTION WIDTH 14.6 % (9.4-14.8)
[2020-02-06 05:54] LABS: BASOPHILS % (AUTO) 0 % (0-1); EOSINOPHILS % (AUTO) 0 % (1-7); LYMPHOCYTES # (AUTO) 0.65 x10^3/uL (1-3.4); LYMPHOCYTES % (AUTO) 7 % (22-44); MD SCAN; MONOCYTES # (AUTO) 0.17 x10^3/uL (0.2-0.8); MONOCYTES % (AUTO) 2 % (2-9); NEUTROPHILS % (AUTO) 91 % (42-75)
[2020-02-06] MEDS: LABETALOL 5MG/ML, 20ML IVPush PRN ×2 (06:12→18:36)
[2020-02-06] MEDS: SENNA/DOCUSATE TABLET PO SCH (07:57)
[2020-02-06] MEDS ORDERED: ZIPRASIDONE 20 MG INJ IM PRN (08:00)
[2020-02-06] MEDS ORDERED: ZIPRASIDONE 20 MG INJ IM ONE (08:00)
[2020-02-06] MEDS: POTASSIUM CHLORIDE 20 MEQ TAB.ER.PRT PO SCH ×2 (08:17→16:57)
[2020-02-06] MEDS: AMLODIPINE 10 MG TAB PO SCH (10:32)
[2020-02-06] MEDS: LISINOPRIL 40 MG TABLET PO SCH (10:32)
[2020-02-06 14:05] VITALS: BP 168/87
[2020-02-06] MEDS: ENOXAPARIN 40 MG/0.4 ML SQ SCH (17:04)
[2020-02-06 17:50] VITALS: BP 173/85
[2020-02-06 19:18] VITALS: BP 180/98
[2020-02-06 21:43] VITALS: BP 157/98
[2020-02-07 01:21] VITALS: BP 163/99
[2020-02-07] MEDS: LEVETIRACETAM 1,000 MG in SODIUM CHLORIDE 0.9% 100 ML IV SCH ×2 (06:11→18:30)
[2020-02-07 06:16] VITALS: BP 174/100
[2020-02-07] MEDS: ENALAPRILAT 1.25 MG/ML, 2ML IVPush PRN ×2 (06:24→12:48)
[2020-02-07 07:38] LABS: MEAN CORPUSCULAR HEMOGLOBIN 27.1 pg (27.5-34.5); MEAN CORPUSCULAR HGB CONC 31.5 g/dL (33.2-36.2); MEAN PLATELET VOLUME 10.8 fL (7.4-10.4); PLATELET COUNT 135 x10^3/uL (130-400); RED BLOOD COUNT 5.33 x10^6/uL (4.38-5.82); RED CELL DISTRIBUTION WIDTH 14.7 % (9.4-14.8)
[2020-02-07 07:42] LABS: ALANINE AMINOTRANSFERASE 17 U/L (12-78); ALBUMIN 3.1 g/dL (3.4-5.0); ANION GAP 8 mmol/L (5-15); CALCIUM 9.1 mg/dL (8.5-10.1); CHLORIDE 114 mmol/L (98-107); CREATININE 1.11 mg/dL (0.7-1.3)
[2020-02-07 07:44] LABS: ALKALINE PHOSPHATASE 75 U/L (45-117); BILIRUBIN,TOTAL 0.6 mg/dL (0.2-1.0); TOTAL PROTEIN 7.3 g/dL (6.4-8.2)
[2020-02-07 07:53] LABS: BASOPHILS # (AUTO) 0.01 x10^3/uL (0-0.1); BASOPHILS % (AUTO) 0 % (0-1); EOSINOPHILS % (AUTO) 0 % (1-7); LYMPHOCYTES # (AUTO) 0.64 x10^3/uL (1-3.4); LYMPHOCYTES % (AUTO) 8 % (22-44); MD SCAN; MONOCYTES # (AUTO) 0.57 x10^3/uL (0.2-0.8); MONOCYTES % (AUTO) 7 % (2-9); NEUTROPHILS # (AUTO) 6.96 x10^3/uL (1.8-6.8); NEUTROPHILS % (AUTO) 85 % (42-75)
[2020-02-07] MEDS: SENNA/DOCUSATE TABLET PO SCH (09:49)
[2020-02-07] MEDS: LISINOPRIL 40 MG TABLET PO SCH (09:49)
[2020-02-07] MEDS: AMLODIPINE 10 MG TAB PO SCH (09:49)
[2020-02-07] MEDS ORDERED: GADOTERATE 10 MMOL/20 ML SYR ONE (11:04)
[2020-02-07 12:16] VITALS: BP 189/106
[2020-02-07] MEDS: ASPIRIN 325 MG TABLET PO SCH (15:25)
[2020-02-07 15:28] VITALS: BP 171/98
[2020-02-07] MEDS ORDERED: OMNIPAQUE 350 MG/ML, 100ML BOTTLE ONE (17:22)
[2020-02-07 18:19] VITALS: BP 157/89
[2020-02-07] MEDS: ENOXAPARIN 40 MG/0.4 ML SQ SCH (18:29)
[2020-02-07 20:04] VITALS: BP 149/96
[2020-02-07] MEDS: ATORVASTATIN 40 MG TABLET PO SCH (20:05)
[2020-02-08 00:26] VITALS: BP 128/75
[2020-02-08] MEDS: LEVETIRACETAM 1,000 MG in SODIUM CHLORIDE 0.9% 100 ML IV SCH ×2 (04:43→17:21)
[2020-02-08 04:58] LABS: MEAN CORPUSCULAR HEMOGLOBIN 27.2 pg (27.5-34.5); MEAN CORPUSCULAR HGB CONC 31.4 g/dL (33.2-36.2); RED BLOOD COUNT 4.95 x10^6/uL (4.38-5.82)
[2020-02-08 05:02] LABS: ANION GAP 6 mmol/L (5-15); CALCIUM 8.8 mg/dL (8.5-10.1); CHLORIDE 112 mmol/L (98-107)
[2020-02-08 05:07] LABS: CHOL/HDL RATIO 2.7; CHOLESTEROL, TOTAL 120 mg/dL (140-239); CREATININE 1.34 mg/dL (0.7-1.3); HDL CHOL % 38 % (26-37); HDL CHOLESTEROL (DIRECT) 45 mg/dL (40-60); LDL CHOLESTEROL,CALCULATED 55 mg/dL (54-169); LDL/HDL RATIO 1.2 (0.5-3.0); TRIGLYCERIDES 100 mg/dL (50-200); VLDL CHOLESTEROL 20 mg/dL (0-25)
[2020-02-08 05:58] LABS: BASOPHILS # (AUTO) 0.02 x10^3/uL (0-0.1); BASOPHILS % (AUTO) 0 % (0-1); EOSINOPHILS # (AUTO) 0.01 x10^3/uL (0-0.4); EOSINOPHILS % (AUTO) 0 % (1-7); LYMPHOCYTES # (AUTO) 1.87 x10^3/uL (1-3.4); LYMPHOCYTES % (AUTO) 27 % (22-44); MD SCAN; MEAN PLATELET VOLUME 11.1 fL (7.4-10.4); MONOCYTES # (AUTO) 0.73 x10^3/uL (0.2-0.8); MONOCYTES % (AUTO) 11 % (2-9); NEUTROPHILS # (AUTO) 4.19 x10^3/uL (1.8-6.8); NEUTROPHILS % (AUTO) 61 % (42-75); PLATELET COUNT 122 x10^3/uL (130-400)
[2020-02-08 08:46] VITALS: BP 165/88
[2020-02-08] MEDS: SENNA/DOCUSATE TABLET PO SCH (09:00)
[2020-02-08] MEDS: LISINOPRIL 40 MG TABLET PO SCH (10:02)
[2020-02-08] MEDS: AMLODIPINE 10 MG TAB PO SCH (10:03)
[2020-02-08] MEDS: ASPIRIN 325 MG TABLET PO SCH (10:03)
[2020-02-08 13:34] VITALS: BP 134/87
[2020-02-08] MEDS: ENOXAPARIN 40 MG/0.4 ML SQ SCH (17:22)
[2020-02-08 18:42] VITALS: BP 157/92
[2020-02-08 20:03] VITALS: BP 172/97
[2020-02-08] MEDS: ATORVASTATIN 40 MG TABLET PO SCH (20:05)
[2020-02-08 21:37] VITALS: BP 132/75
[2020-02-09] VITALS (11 sets, daily range): BP systolic 147–200; BP diastolic 68–101
[2020-02-09] MEDS: ENALAPRILAT 1.25 MG/ML, 2ML IVPush PRN ×2 (00:56→03:35)
[2020-02-09] MEDS: hydrALAzine 20 MG/ML, 1ML IV PRN ×2 (02:16→03:03)
[2020-02-09] MEDS: LEVETIRACETAM 1,000 MG in SODIUM CHLORIDE 0.9% 100 ML IV SCH ×2 (05:23→17:05)
[2020-02-09] MEDS: SENNA/DOCUSATE TABLET PO SCH (09:00)
[2020-02-09] MEDS: ASPIRIN 81 MG TABLET CHEW PO SCH (09:15)
[2020-02-09] MEDS: AMLODIPINE 10 MG TAB PO SCH (09:15)
[2020-02-09] MEDS: LISINOPRIL 40 MG TABLET PO SCH (09:15)
[2020-02-09 09:33] LABS: ALANINE AMINOTRANSFERASE 20 U/L (12-78); ALBUMIN 3.5 g/dL (3.4-5.0); ANION GAP 8 mmol/L (5-15); CALCIUM 8.9 mg/dL (8.5-10.1); CHLORIDE 113 mmol/L (98-107); MEAN CORPUSCULAR HEMOGLOBIN 27.3 pg (27.5-34.5); MEAN CORPUSCULAR HGB CONC 31.9 g/dL (33.2-36.2); MEAN PLATELET VOLUME 10.4 fL (7.4-10.4); PLATELET COUNT 138 x10^3/uL (130-400); RED BLOOD COUNT 5.35 x10^6/uL (4.38-5.82); RED CELL DISTRIBUTION WIDTH 14.4 % (9.4-14.8)
[2020-02-09 09:36] LABS: ALKALINE PHOSPHATASE 95 U/L (45-117); BILIRUBIN,TOTAL 0.4 mg/dL (0.2-1.0); CREATININE 1.21 mg/dL (0.7-1.3); TOTAL PROTEIN 7.9 g/dL (6.4-8.2)
[2020-02-09 10:10] LABS: BASOPHILS # (AUTO) 0.02 x10^3/uL (0-0.1); BASOPHILS % (AUTO) 0 % (0-1); EOSINOPHILS # (AUTO) 0.01 x10^3/uL (0-0.4); EOSINOPHILS % (AUTO) 0 % (1-7); LYMPHOCYTES # (AUTO) 0.96 x10^3/uL (1-3.4); LYMPHOCYTES % (AUTO) 14 % (22-44); MD SCAN; MONOCYTES # (AUTO) 0.54 x10^3/uL (0.2-0.8); MONOCYTES % (AUTO) 8 % (2-9); NEUTROPHILS # (AUTO) 5.47 x10^3/uL (1.8-6.8); NEUTROPHILS % (AUTO) 78 % (42-75)
[2020-02-09] MEDS: ENOXAPARIN 40 MG/0.4 ML SQ SCH (17:04)
[2020-02-09] MEDS: ATORVASTATIN 40 MG TABLET PO SCH (20:09)
[2020-02-10 02:37] VITALS: BP 149/90
[2020-02-10] MEDS: LEVETIRACETAM 1,000 MG in SODIUM CHLORIDE 0.9% 100 ML IV SCH (05:23)
[2020-02-10 07:36] VITALS: BP 189/90
[2020-02-10] MEDS ORDERED: TAMSULOSIN 0.4 MG CAP.ER.24H ONE (07:58)
[2020-02-10] MEDS: SENNA/DOCUSATE TABLET PO SCH (08:01)
[2020-02-10] MEDS: AMLODIPINE 10 MG TAB PO SCH (08:02)
[2020-02-10] MEDS: LISINOPRIL 40 MG TABLET PO SCH (08:02)
[2020-02-10] MEDS: ASPIRIN 81 MG TABLET CHEW PO SCH (08:02)
[2020-02-10] MEDS: TAMSULOSIN 0.4 MG CAP.ER.24H PO SCH (08:02)
[2020-02-10 08:34] VITALS: BP 167/91
[2020-02-10 12:37] VITALS: BP 144/88
[2020-02-10] MEDS: ENOXAPARIN 40 MG/0.4 ML SQ SCH (16:30)
[2020-02-10 19:00] VITALS: BP 157/90
[2020-02-10] MEDS: LEVETIRACETAM 500 MG TABLET PO SCH (21:27)
[2020-02-10] MEDS: ATORVASTATIN 40 MG TABLET PO SCH (21:27)
[2020-02-11 00:32] VITALS: BP 149/90
[2020-02-11 06:39] VITALS: BP 163/92
[2020-02-11] MEDS: LEVETIRACETAM 500 MG TABLET PO SCH ×2 (08:35→21:33)
[2020-02-11] MEDS: LISINOPRIL 40 MG TABLET PO SCH (08:35)
[2020-02-11] MEDS: TAMSULOSIN 0.4 MG CAP.ER.24H PO SCH (08:35)
[2020-02-11] MEDS: AMLODIPINE 10 MG TAB PO SCH (08:35)
[2020-02-11] MEDS: SENNA/DOCUSATE TABLET PO SCH (08:36)
[2020-02-11] MEDS: ASPIRIN 81 MG TABLET CHEW PO SCH (08:36)
[2020-02-11 12:53] VITALS: BP 155/91
[2020-02-11] MEDS: ENOXAPARIN 40 MG/0.4 ML SQ SCH (16:15)
[2020-02-11 19:19] VITALS: BP 157/90
[2020-02-11] MEDS: ATORVASTATIN 40 MG TABLET PO SCH (21:33)
[2020-02-12 00:50] VITALS: BP 159/96
[2020-02-12 07:12] VITALS: BP 164/91
[2020-02-12] MEDS: LISINOPRIL 40 MG TABLET PO SCH (08:23)
[2020-02-12] MEDS: SENNA/DOCUSATE TABLET PO SCH (08:24)
[2020-02-12] MEDS: TAMSULOSIN 0.4 MG CAP.ER.24H PO SCH (08:24)
[2020-02-12] MEDS: ASPIRIN 81 MG TABLET CHEW PO SCH (08:24)
[2020-02-12] MEDS: LEVETIRACETAM 500 MG TABLET PO SCH ×2 (08:24→21:09)
[2020-02-12] MEDS: AMLODIPINE 10 MG TAB PO SCH (08:24)
[2020-02-12 12:26] VITALS: BP 121/77
[2020-02-12 15:46] VITALS: BP 136/88
[2020-02-12] MEDS: ENOXAPARIN 40 MG/0.4 ML SQ SCH (16:36)
[2020-02-12 19:41] VITALS: BP 157/87
[2020-02-12] MEDS: ATORVASTATIN 40 MG TABLET PO SCH (21:09)
[2020-02-13 00:29] VITALS: BP 154/91
[2020-02-13 07:18] VITALS: BP 156/77
[2020-02-13] MEDS: LISINOPRIL 40 MG TABLET PO SCH (08:12)
[2020-02-13] MEDS: TAMSULOSIN 0.4 MG CAP.ER.24H PO SCH (08:12)
[2020-02-13] MEDS: AMLODIPINE 10 MG TAB PO SCH (08:12)
[2020-02-13] MEDS: ASPIRIN 81 MG TABLET CHEW PO SCH (08:12)
[2020-02-13] MEDS: LEVETIRACETAM 500 MG TABLET PO SCH ×2 (08:13→20:07)
[2020-02-13] MEDS: SENNA/DOCUSATE TABLET PO SCH (08:14)
[2020-02-13 12:10] VITALS: BP 113/72
[2020-02-13] MEDS: ENOXAPARIN 40 MG/0.4 ML SQ SCH ×2 (16:34→16:39)
[2020-02-13 18:24] VITALS: BP 116/69
[2020-02-13 18:35] VITALS: BP 150/95
[2020-02-13] MEDS: ATORVASTATIN 40 MG TABLET PO SCH (20:07)
[2020-02-14 02:11] VITALS: BP 127/73
[2020-02-14 06:18] VITALS: BP 153/83
[2020-02-14 06:56] LABS: CREATININE 0.76 mg/dL (0.7-1.3)
[2020-02-14 07:17] LABS: MEAN CORPUSCULAR HEMOGLOBIN 27.1 pg (27.5-34.5); MEAN CORPUSCULAR HGB CONC 31.6 g/dL (33.2-36.2); MEAN PLATELET VOLUME 10.9 fL (7.4-10.4); PLATELET COUNT 150 x10^3/uL (130-400); RED BLOOD COUNT 4.38 x10^6/uL (4.38-5.82); RED CELL DISTRIBUTION WIDTH 14.4 % (9.4-14.8)
[2020-02-14 07:25] LABS: ALANINE AMINOTRANSFERASE 16 U/L (12-78); ALBUMIN 2.5 g/dL (3.4-5.0); ANION GAP 6 mmol/L (5-15); CHLORIDE 115 mmol/L (98-107); CREATININE 0.79 mg/dL (0.7-1.3)
[2020-02-14 07:27] LABS: ALKALINE PHOSPHATASE 69 U/L (45-117); BILIRUBIN,TOTAL 0.2 mg/dL (0.2-1.0); TOTAL PROTEIN 6.2 g/dL (6.4-8.2)
[2020-02-14 08:22] LABS: BASOPHILS # (AUTO) 0.02 x10^3/uL (0-0.1); BASOPHILS % (AUTO) 0 % (0-1); EOSINOPHILS # (AUTO) 0.04 x10^3/uL (0-0.4); EOSINOPHILS % (AUTO) 1 % (1-7); LYMPHOCYTES # (AUTO) 1.68 x10^3/uL (1-3.4); LYMPHOCYTES % (AUTO) 30 % (22-44); MD SCAN; MONOCYTES # (AUTO) 0.44 x10^3/uL (0.2-0.8); MONOCYTES % (AUTO) 8 % (2-9); NEUTROPHILS # (AUTO) 3.38 x10^3/uL (1.8-6.8); NEUTROPHILS % (AUTO) 61 % (42-75)
[2020-02-14] MEDS: TAMSULOSIN 0.4 MG CAP.ER.24H PO SCH (08:54)
[2020-02-14] MEDS: LISINOPRIL 40 MG TABLET PO SCH (08:54)
[2020-02-14] MEDS: SENNA/DOCUSATE TABLET PO SCH (08:55)
[2020-02-14] MEDS: ASPIRIN 81 MG TABLET CHEW PO SCH (08:55)
[2020-02-14] MEDS: AMLODIPINE 10 MG TAB PO SCH (08:55)
[2020-02-14] MEDS: LEVETIRACETAM 500 MG TABLET PO SCH ×2 (08:55→20:19)
[2020-02-14 12:54] VITALS: BP 136/88
[2020-02-14] MEDS: ENOXAPARIN 40 MG/0.4 ML SQ SCH (18:24)
[2020-02-14 19:15] VITALS: BP 149/82
[2020-02-14] MEDS: ATORVASTATIN 40 MG TABLET PO SCH (20:19)
[2020-02-15] VITALS (7 sets, daily range): BP systolic 132–163; BP diastolic 77–88
[2020-02-15] MEDS: SENNA/DOCUSATE TABLET PO SCH (10:19)
[2020-02-15] MEDS: ASPIRIN 81 MG TABLET CHEW PO SCH (10:20)
[2020-02-15] MEDS: LEVETIRACETAM 500 MG TABLET PO SCH ×2 (10:20→21:07)
[2020-02-15] MEDS: TAMSULOSIN 0.4 MG CAP.ER.24H PO SCH (10:20)
[2020-02-15] MEDS: LISINOPRIL 40 MG TABLET PO SCH (10:20)
[2020-02-15] MEDS: AMLODIPINE 10 MG TAB PO SCH (10:21)
[2020-02-15] MEDS: ENOXAPARIN 40 MG/0.4 ML SQ SCH (17:00)
[2020-02-15] MEDS: ATORVASTATIN 40 MG TABLET PO SCH (21:07)
[2020-02-16 01:17] VITALS: BP 138/86
[2020-02-16 06:53] VITALS: BP 122/80
[2020-02-16] MEDS: SENNA/DOCUSATE TABLET PO SCH (09:00)
[2020-02-16 09:45] VITALS: BP 135/84
[2020-02-16] MEDS: LEVETIRACETAM 500 MG TABLET PO SCH (09:58)
[2020-02-16] MEDS: ASPIRIN 81 MG TABLET CHEW PO SCH (09:58)
[2020-02-16] MEDS: TAMSULOSIN 0.4 MG CAP.ER.24H PO SCH (09:58)
[2020-02-16] MEDS: LISINOPRIL 40 MG TABLET PO SCH (09:59)
[2020-02-16] MEDS: AMLODIPINE 10 MG TAB PO SCH (09:59)
[2020-02-16 12:25] VITALS: BP 107/70
== END 2020-02-16 17:28 | disposition left against medical advice (07) | DRG 100 ==
LOC: ED 16:04 → CCU 17:13 → ED 23:16 → CCU 23:17 → 4WST 02-06 18:41 → 4EST 02-08 23:00 → 4WST 02-10 04:14
PROVIDERS: ADMIT Internal Medicine; ATTEND Internal Medicine
DX: G40.901 Epilepsy, unspecified, not intractable, with status epilepticus (principal); I63.9 Cerebral infarction, unspecified; J96.01 Acute respiratory failure with hypoxia; E87.2 Acidosis; I16.0 Hypertensive urgency; E87.6 Hypokalemia; F12.90 Cannabis use, unspecified, uncomplicated; G51.0 Bell's palsy; I10 Essential (primary) hypertension; N40.0 Benign prostatic hyperplasia without lower urinary tract symptoms; R33.9 Retention of urine, unspecified; Z91.19 Patient's noncompliance with other medical treatment and regimen; Z87.820 Personal history of traumatic brain injury
CPT/HCPCS: 36415; 70450; 70496; 70553; 71045; 80048; 80053; 80061; 80164; 80177; 80185; 80307; 82140; 82565; 82962; 83735; 85025; 85610; 85730; 87040; 87081; 93005; 93306; 93356; 93880; 95819; G0378; J0295; J1165; J1650; J1953; Q9967; 92523-GN; A9575; J0360; J2060; J2270; J7030; J7517